=== PATIENT | male | born 1990 | race Caucasian/White ===

== ENCOUNTER 2020-12-10 17:31 | Emergency (ER) | payer MEDICAID ==
[2020-12-10] MEDS: Metoprolol Tartrate 25 MG Tab PO STA (18:28)
[2020-12-10] MEDS: hydrOXYzine HCl 50 MG/ML SDV IM STA (18:28)
[2020-12-10] MEDS: Diazepam 5 MG Tab PO STA (18:28)
--- NOTE | 2020-12-10 18:47 | EDM.PDOC ---
ED HPI GENERAL MEDICAL PROBLEM - General Chief Complaint: General Stated Complaint: POSSIBLY POSIONED Time Seen by Provider: 12/10/20 17:50 Source of Information: Reports: Patient, Family History Limitations: Reports: No Limitations - History of Present Illness INITIAL COMMENTS - FREE TEXT/NARRATIVE: Patient presented to the ED because of paranoia. He think that somebody added a poison to his mountain dew. He has been using meth for 2 days and has not been able to sleep for 36 hours now. Denies having auditory or visual hallucinations. Throat Pain Score (Numeric/FACES): 7 - Related Data Allergies Allergy/AdvReac Type Severity Reaction Status Date / Time No Known Allergies Allergy Verified 12/10/20 17:45 Home Meds: Home Meds levETIRAcetam [Keppra] 1,000 mg PO DAILY 12/10/20 [History] valACYclovir [Valtrex] 1,000 mg PO DAILY 12/10/20 [History] Past Medical History Neurological History: Reports: Seizure Psychiatric History: Reports: Addiction - Infectious Disease History Infectious Disease History: Reports: Human Papilloma Virus (HPV) Social & Family History - Family History Family Medical History: No Pertinent Family History - Recreational Drug Use Recreational Drug Use: Yes Drug Use in Last 12 Months: Yes Recreational Drug Type: Reports: Methamphetamine ED ROS GENERAL - Review of Systems Review Of Systems: See Below Constitutional: Reports: No Symptoms HEENT: Reports: No Symptoms Respiratory: Reports: No Symptoms Cardiovascular: Reports: No Symptoms Endocrine: Reports: No Symptoms GI/Abdominal: Reports: No Symptoms : Reports: No Symptoms Musculoskeletal: Reports: No Symptoms Skin: Reports: No Symptoms Neurological: Reports: No Symptoms Psychiatric: Reports: Anxiety, Other (paranoia) ED EXAM, GENERAL - Physical Exam Exam: See Below Exam Limited By: No Limitations General Appearance: Alert, No Apparent Distress Nose: Normal Inspection, Normal Mucosa, No Blood Throat/Mouth: Normal Inspection, Normal Teeth Head: Atraumatic, Normocephalic Neck: Normal Inspection, Supple, Non-Tender, Full Range of Motion Respiratory/Chest: No Respiratory Distress, Lungs Clear, Normal Breath Sounds Cardiovascular: Normal Peripheral Pulses, No Edema, No Gallop, Tachycardia GI/Abdominal: Normal Bowel Sounds, Soft, Non-Tender, No Organomegaly Back Exam: Normal Inspection, Full Range of Motion Extremities: Normal Inspection, Normal Range of Motion, Non-Tender Neurological: Alert, Oriented, CN II-XII Intact, Normal Cognition, Normal Gait Psychiatric: Normal Affect, Normal Mood Skin Exam: Warm Lymphatic: No Adenopathy Course - Vital Signs Text/Narrative:: Labs/EKG result was discussed with patient Valium 10 mg PO x1 Vistaril 50 mg IM x1 Zyprexa 10 mg I x1 Last Recorded V/S: Last Vital Signs Temp Pulse 99 12/10/20 19:11 Resp 16 12/10/20 19:11 BP 133/89 12/10/20 19:11 Pulse Ox 98 12/10/20 19:11 - Orders/Labs/Meds Orders: Active Orders 24 hr Category Date Time Status EKG 12 Lead [EK] Routine Ther 12/10/20 17:59 Ordered Labs: Laboratory Tests 12/10/20 12/10/20 12/10/20 Range/Units 18:08 18:08 18:27 Sodium 138 (135-145) mmol/L Potassium 4.2 (3.5-5.3) mmol/L Chloride 100 (100-110) mmol/L Carbon Dioxide 27 (21-32) mmol/L BUN 14 (7-18) mg/dL Creatinine 1.1 (0.70-1.30) mg/dL Est Cr Clr Drug Dosing 96.22 mL/min Estimated GFR (MDRD) > 60 (>60) BUN/Creatinine Ratio 12.7 (9-20) Glucose 81 (80-116) mg/dL Calcium 9.2 (8.6-10.2) mg/dL Total Bilirubin 0.9 (0.1-1.3) mg/dL AST 28 H (5-25) IU/L ALT 42 H (12-36) U/L Alkaline Phosphatase 73 (56-112) IU/L Total Protein 8.3 H (6.0-8.0) g/dL Albumin 4.4 (3.5-5.2) g/dL Globulin 3.9 g/dL Albumin/Globulin Ratio 1.1 Urine Opiates Screen Negative (NEGATIVE) Ur Oxycodone Screen Negative (NEGATIVE) Ur Propoxyphene Screen Negative (NEGATIVE) Ur Barbituates Screen Negative (NEGATIVE) Ur Tricyclics Screen Negative (NEGATIVE) Ur Phencyclidine Scrn Negative (NEGATIVE) Ur Amphetamine Screen Positive H (NEGATIVE) Urine MDMA Screen Negative (NEGATIVE) U Benzodiazepines Scrn Negative (NEGATIVE) U Cocaine Metab Screen Negative (NEGATIVE) U Marijuana (THC) Screen Negative (NEGATIVE) Ethyl Alcohol < 0.03 (<0.03) % Meds: Medications Discontinued Medications Generic Name Dose Route Start Last Admin Trade Name Lori PRN Reason Stop Dose Admin Diazepam 10 mg 12/10/20 18:07 12/10/20 18:28 Diazepam 5 Mg Tab PO 12/10/20 18:08 10 mg NOW STA Administration Hydroxyzine HCl 50 mg 12/10/20 18:17 12/10/20 18:28 Hydroxyzine Hcl 50 Mg/Ml Sdv IM 12/10/20 18:18 50 mg NOW STA Administration Metoprolol Tartrate 50 mg 12/10/20 18:07 12/10/20 18:28 Metoprolol Tartrate 25 Mg Tab PO 12/10/20 18:08 50 mg NOW STA Administration Olanzapine 10 mg 12/10/20 18:37 12/10/20 18:49 Olanzapine 10 Mg Vial IM 12/10/20 18:38 10 mg NOW STA Administration Departure - Departure Time of Disposition: 18:50 Disposition: Home, Self-Care 01 Condition: Good Clinical Impression: Substance abuse, Acute paranoia - Discharge Information Instructions: Substance Use Disorder Referrals: Jorge Melton DO [Primary Care Provider] - Forms: ED Department Discharge Additional Instructions: Please read discharge instructions on substance abuse Quit using street drugs before it's too late Follow up with your doctor so you can be referred for chemical dependency treatment Sepsis Event Note (ED) - Evaluation Sepsis Screening Result: No Definite Risk - Focused Exam Vital Signs: Vital Signs Pulse Pulse Resp BP BP Pulse Ox 12/10/20 19:11 99 16 133/89 98 12/10/20 18:28 113 H 138/101 H 12/10/20 17:47 112 H 16 120/97 H 99 - My Orders Last 24 Hours: My Active Orders 12/10/20 17:59 EKG 12 Lead [EK] Routine - Assessment/Plan Last 24 Hours: My Active Orders 12/10/20 17:59 EKG 12 Lead [EK] Routine
[2020-12-10] MEDS: OLANZapine 10 MG Vial IM STA (18:49)
== END 2020-12-10 19:30 | disposition home or self-care (01) ==
LOC: FB.ED 17:31
DX: F22 Delusional disorders (principal); F15.10 Other stimulant abuse, uncomplicated; R56.9 Unspecified convulsions; Z79.899 Other long term (current) drug therapy
CPT/HCPCS: 36415; 80053; 80305; 80307; 93005; 96372; 99283; 99285; A9270; J3410; J3490

== ENCOUNTER 2021-01-01 16:21 | Emergency (ER) | payer MEDICAID ==
[2021-01-01] MEDS ORDERED: Lidocaine 2% Viscous Solution 15 ML Cup PO ONE ×3 (17:09→18:13)
[2021-01-01] MEDS: Lidocaine 2% Viscous Solution 15 ML Cup PO STA (18:10)
--- NOTE | 2021-01-01 18:12 | EDM.PDOC ---
ED HPI GENERAL MEDICAL PROBLEM - General Chief Complaint: ENT Problem Stated Complaint: WISDOM TEETH PAIN Time Seen by Provider: 01/01/21 16:40 Source of Information: Reports: Patient History Limitations: Reports: No Limitations - History of Present Illness INITIAL COMMENTS - FREE TEXT/NARRATIVE: Patient presented to the ED because of dental pain which started yesterday. the pain is on the lower wisdom tooth area and upper incisors. He took OTC ibuprofen without any relief. 2 lower teeth and 1 upper tooth Pain Score (Numeric/FACES): 10 - Related Data Allergies Allergy/AdvReac Type Severity Reaction Status Date / Time No Known Allergies Allergy Verified 01/01/21 17:47 Home Meds: Home Meds levETIRAcetam [Keppra] 1,000 mg PO DAILY 12/10/20 [History] valACYclovir [Valtrex] 1,000 mg PO DAILY 12/10/20 [History] Ibuprofen [Advil] 400 mg PO ASDIRECTED PRN 01/01/21 [History] Lidocaine 2% [Xylocaine 2% Jelly] 1 ml TOP Q12H PRN #30 ml 01/01/21 [Rx] Past Medical History Musculoskeletal History: Reports: Other (See Below) Other Musculoskeletal History: LEFT ELBOW FRACTURE Neurological History: Reports: Seizure Psychiatric History: Reports: Addiction - Infectious Disease History Infectious Disease History: Reports: Human Papilloma Virus (HPV) Social & Family History - Family History Family Medical History: No Pertinent Family History - Tobacco Use Tobacco Use Status *Q: Current Every Day Tobacco User Years of Tobacco use: 16 Packs/Tins Daily: 1 - Caffeine Use Caffeine Use: Reports: Coffee, Energy Drinks, Soda - Recreational Drug Use Recreational Drug Use: No ED ROS ENT - Review of Systems Review Of Systems: See Below Constitutional: Reports: No Symptoms HEENT: Reports: Dental Pain Respiratory: Reports: No Symptoms Cardiovascular: Reports: No Symptoms Endocrine: Reports: No Symptoms GI/Abdominal: Reports: No Symptoms : Reports: No Symptoms Musculoskeletal: Reports: No Symptoms Skin: Reports: No Symptoms Neurological: Reports: No Symptoms Psychiatric: Reports: No Symptoms Hematologic/Lymphatic: Reports: No Symptoms ED EXAM, ENT - Physical Exam Exam: See Below Exam Limited By: No Limitations General Appearance: Alert, No Apparent Distress Eye Exam: Bilateral Eye: PERRL Ears: Normal External Exam, Normal Canal, Hearing Grossly Normal Nose: Normal Inspection, Normal Mucousa, No Blood Mouth/Throat: Normal Inspection, Normal Gums, Normal Lips, Normal Oropharynx, Normal Teeth, Other (multiple dental caries) Head: Atraumatic, Normocephalic Neck: Normal Inspection, Supple, Non-Tender, Full Range of Motion Respiratory/Chest: No Respiratory Distress, Lungs Clear, Normal Breath Sounds, No Accessory Muscle Use, Chest Non-Tender Cardiovascular: Normal Peripheral Pulses, Regular Rate, Rhythm, No Edema, No Gallop, No JVD, No Murmur, No Rub GI/Abdominal: Normal Bowel Sounds, Soft, Non-Tender, No Organomegaly Back: Normal Inspection Extremities: Normal Inspection Neurological: Alert, Oriented, CN II-XII Intact, Normal Cognition Course - Vital Signs Text/Narrative:: viscous lidocaine 2%, 15 ml was appled with significant relief of his pain Last Recorded V/S: Last Vital Signs Temp 36.5 C 01/01/21 16:30 Pulse 98 01/01/21 18:15 Resp 16 01/01/21 18:15 BP 134/79 01/01/21 18:15 Pulse Ox 99 01/01/21 18:15 - Orders/Labs/Meds Meds: Medications Discontinued Medications Generic Name Dose Route Start Last Admin Trade Name Freq PRN Reason Stop Dose Admin Lidocaine HCl 15 ml 01/01/21 17:09 01/01/21 17:14 Lidocaine 2% Viscous Solution 15 Ml Cup PO 01/01/21 17:10 15 ml ONETIME ONE Administration Lidocaine HCl 30 ml 01/01/21 18:13 01/01/21 18:38 Lidocaine 2% Viscous Solution 15 Ml Cup PO 01/01/21 18:14 Not Given ONETIME ONE Lidocaine HCl 15 ml 01/01/21 18:36 01/01/21 18:10 Lidocaine 2% Viscous Solution 15 Ml Cup PO 01/01/21 18:37 15 ml NOW STA Administration Departure - Departure Time of Disposition: 18:10 Disposition: Home, Self-Care 01 Condition: Good Clinical Impression: Pain, dental - Discharge Information Prescriptions: Lidocaine 2% [Xylocaine 2% Jelly] 1 ml TOP Q12H PRN #30 ml PRN Reason: Pain Instructions: Benzocaine mouth gel, ointment, solution, or dental paste Referrals: Gaby Trent NP [Primary Care Provider] - Forms: ED Department Discharge Additional Instructions: Please read discharge instructions on dental pain Take ibuprofen 800 mg with tylenol 1000 mg every 8 hours as needed for pain Viscous lidocaine apply every 2 hrs as needed for pain Follow up with your dentist [facility] Sepsis Event Note (ED) - Evaluation Sepsis Screening Result: No Definite Risk - Focused Exam Vital Signs: Vital Signs Pulse Resp BP Pulse Ox 01/01/21 18:15 98 16 134/79 99
[2021-01-04] MEDS: Lidocaine 2% Viscous Solution 15 ML Cup PO STA (11:08)
== END 2021-01-01 18:15 | disposition home or self-care (01) ==
LOC: FB.ED 16:21
DX: K02.9 Dental caries, unspecified (principal); Z72.0 Tobacco use; Z79.899 Other long term (current) drug therapy
CPT/HCPCS: 99282; A9270-GY

== ENCOUNTER 2021-01-13 19:19 | Emergency (ER) | payer MEDICAID ==
--- NOTE | 2021-01-13 23:11 | EDM.PDOC ---
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, says he wants to get off of alcohol and meth he was in 30-day inpt treatment several yrs ago in [place] for substance abuse, then had outpt tx altho he said he relapsed almost immediately no SI, says he will if he continues to abuse drugs but does not want to which is why he came to ED he has no transportation 2m ago he came to live with his brother who uses meth but not alc pt denies other street drugs, no cigs PCP Dr Bonilla pt was in ED 1m ago and had amphetamine in utox, alc neg, he had paranoia and was referred back to his PCP pt states he cut himself when in group home, released from group home in Nov not working he is on Keppra since age 21, no head trauma, 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", says he has been taking his Keppra he was given 30 tabs of lorazepam 0.5 mg 11d ago by Mary Ann Cardenas, says he ran out yesterday, says he took it for anxiety - Related Data Allergies Allergy/AdvReac Type Severity Reaction Status Date / Time No Known Allergies Allergy Verified 01/13/21 19:32 Home Meds: Home Meds levETIRAcetam [Keppra] 1,000 mg PO DAILY 12/10/20 [History] Ibuprofen [Advil] 400 mg PO ASDIRECTED PRN 01/01/21 [History] LORazepam [Ativan] 0.5 mg PO BID 01/13/21 [History] Past Medical History Musculoskeletal History: Reports: Other (See Below) Other Musculoskeletal History: LEFT ELBOW FRACTURE Neurological History: Reports: Seizure Psychiatric History: Reports: Addiction, Anxiety, Depression, Suicide Attempt - Infectious Disease History Infectious Disease History: Reports: Chicken Pox, Human Papilloma Virus (HPV), Novel Coronavirus - Past Surgical History Musculoskeletal Surgical History: Reports: None Social & Family History - Family History Family Medical History: No Pertinent Family History - Tobacco Use Tobacco Use Status *Q: Current Every Day Tobacco User Years of Tobacco use: 15 Packs/Tins Daily: 0.5 - Caffeine Use Caffeine Use: Reports: None - Alcohol Use Days Per Week of Alcohol Use: 7 Number of Drinks Per Day: 4 Total Drinks Per Week: 28 - Recreational Drug Use Recreational Drug Use: Yes Recreational Drug Type: Reports: Methamphetamine Recreational Drug Use Frequency: Daily ED ROS GENERAL - Review of Systems Review Of Systems: See Below Constitutional: Reports: No Symptoms HEENT: Reports: No Symptoms Respiratory: Reports: No Symptoms Cardiovascular: Reports: No Symptoms Endocrine: Reports: No Symptoms GI/Abdominal: Reports: No Symptoms : Reports: No Symptoms Musculoskeletal: Reports: No Symptoms Skin: Reports: No Symptoms Neurological: Reports: No Symptoms Psychiatric: Reports: Anxiety. Denies: Homicidal Ideation, Suicidal Ideation Hematologic/Lymphatic: Reports: No Symptoms Immunologic: Reports: No Symptoms ED EXAM, GENERAL - Physical Exam Exam: See Below Exam Limited By: No Limitations General Appearance: Alert, WD/WN, No Apparent Distress Eye Exam: Bilateral Eye: PERRL Head: Atraumatic Neck: Normal Inspection, Supple Respiratory/Chest: No Respiratory Distress Cardiovascular: Tachycardia, Other (2/6 UVALDO at [facility]) GI/Abdominal: Soft, Non-Tender Back Exam: Normal Inspection Extremities: Normal Inspection, No Pedal Edema Neurological: Alert, Oriented, CN II-XII Intact, Normal Cognition, Normal Gait, No Motor/Sensory Deficits Psychiatric: Anxious Skin Exam: Warm, Dry, Intact, Normal Color, No Rash Lymphatic: No Adenopathy Course - Vital Signs Last Recorded V/S: Last Vital Signs Temp 36.4 C 01/13/21 19:49 Pulse 105 H 01/13/21 19:49 Resp 18 01/13/21 19:49 BP 124/73 01/13/21 19:49 Pulse Ox 98 01/13/21 19:49 - Re-Assessments/Exams Free Text/Narrative Re-Assessment/Exam: 01/13/21 23:16 pt requesting inpt tx for substance abuse, Corie PRATT called several locations, [facility] was full as were others, [facility] was going to call us back pt aware that calls were pending yet walked out of ED when Corie PRATT and Adriana PRATT and I were in different rooms, he did not speak to anybody he understood that we were working on making arrangements [facility] and [facility] chemical tx HR inc'd on arrival at 112 on EKG, was down to 105 when I examined pt no paranoia or hallucinations today no SI/HI pt states he drank one tall beer and took a shot of liquor today Departure - Departure Time of Disposition: 22:15 Disposition: Eloped 07 Condition: Fair Clinical Impression: Methamphetamine abuse, Alcohol abuse - Discharge Information *PRESCRIPTION DRUG MONITORING PROGRAM REVIEWED*: Not Applicable *COPY OF PRESCRIPTION DRUG MONITORING REPORT IN PATIENT KEISHA: Not Applicable Referrals: PCP,None [Primary Care Provider] - Forms: ED Department Discharge Sepsis Event Note (ED) - Evaluation Sepsis Screening Result: No Definite Risk - Focused Exam Vital Signs: Vital Signs Temp Pulse Resp BP Pulse Ox 01/13/21 19:49 36.4 C 105 H 18 124/73 98
== END 2021-01-13 21:50 | disposition left against medical advice (07) ==
LOC: FB.ED 19:19
DX: F15.10 Other stimulant abuse, uncomplicated (principal); F10.10 Alcohol abuse, uncomplicated; R56.9 Unspecified convulsions; Z79.899 Other long term (current) drug therapy; Z72.0 Tobacco use
CPT/HCPCS: 93005; 99282-25

== ENCOUNTER 2022-03-28 14:53 | Emergency (ER) | payer MEDICAID ==
[2022-03-28] MEDS: levETIRAcetam 500 MG Tab PO STA ×2 (15:13→15:30)
== END 2022-03-28 15:37 | disposition home or self-care (01) ==
LOC: FB.ED 14:53
DX: Z76.0 Encounter for issue of repeat prescription (principal); G40.909 Epilepsy, unspecified, not intractable, without status epilepticus; Z79.899 Other long term (current) drug therapy
CPT/HCPCS: 99281; A9270-GY

== ENCOUNTER 2022-08-17 06:13 | Emergency (ER) | payer MEDICAID ==
[2022-08-17 07:18] LABS: CORONAVIRUS COVID-19 NAA NEGATIVE (NEGATIVE)
== END 2022-08-17 07:15 | disposition left against medical advice (07) ==
LOC: FB.ED 06:13
DX: B34.9 Viral infection, unspecified (principal); Z20.822 Contact with and (suspected) exposure to COVID-19
CPT/HCPCS: 0240U; 99284